=== PATIENT | female | born 1970 | race Caucasian/White ===

== ENCOUNTER → 2021-02-23 12:00 | Outpatient (BNVA) | payer OTHER, SELFPAY | PROVIDERS: Visit Provider Nurse Practitioner Family | DX: N39.0 Urinary tract infection, site not specified (principal) | CPT/HCPCS: 81000 ==

== ENCOUNTER 2025-06-27 16:17 | Emergency (ER) | payer SELFPAY ==
[2025-06-27 16:19] VITALS: BP 111/73; PULSE 74; RESP 14; TEMP 36.4; O2SAT 96; BMI 23.5
--- NOTE | 2025-06-27 16:23 | XRR_ITS ---
PROCEDURE INFORMATION: Exam: XR Right Wrist Exam date and time: 06/27/2025 4:33 PM Age: 55 years old Clinical indication: Injury or trauma; Fall; Blunt trauma (contusions or hematomas); Wrist; Right TECHNIQUE: Imaging protocol: Radiologic exam of the right wrist. Views: 3 or more views. COMPARISON: l spine FINDINGS: Bones/joints: No acute osseous abnormality. Soft tissues: Normal. XR/XR wrist RT min 3V* [id number] IMPRESSION: No acute findings.
--- NOTE | 2025-06-27 16:39 | ED_ITS ---
HPI - Extremity Problem General: Chief complaint: Extremity Injury, Upper Stated complaint: Fall-Hurt R wrist Time Seen by Provider: 06/27/25 16:25 Source: patient Mode of arrival: ambulatory Limitations: no limitations History of Present Illness: Patient is a 55-year-old female presents the emergency department after injuring her right wrist. States that an hour prehospital she slipped and had a FOOSH injury, states that she heard a pop and thinks her right wrist is broken. No previous fractures to that wrist but she did break her left wrist in the past and states that this was a similar incident where she heard a pop. There is EtOH on board. Mild swelling reported, still has range of motion but pain with range of motion with pronation/supination as well as flexion and extension at the wrist. No sensory changes distally. Mild pain noted at this time. Vital stable. No other injuries. MD Complaint: joint swelling and joint pain Onset (ago): hour(s) (1) Pain Consistency: constant Location: right and upper extremity (wrist) Exacerbating factors: range of motion and palpation Associated symptoms: Deny chest pain, fever(s) or rash Context: other (FOOSH rt wrist) Related Data Previous Rx's ?Medication ?Instructions ?Recorded ciprofloxacin HCl 250 mg tablet 250 mg PO BID 5 days # 10 tabs 02/23/21 (Cipro) fluconazole 150 mg tablet 150 mg PO ONCE #1 tab (Diflucan) Allergies Allergy/AdvReac Type Severity Reaction Status Date / Time erythromycin base Allergy unk Verified 06/27/25 16:23 Review of Systems General: Reports: 10 or more systems reviewed and unremarkable except in HPI and below Const: Denies: fever(s) or chills Card: Denies: chest pain Resp: Denies: dyspnea or productive cough GI: Denies: abdominal pain, nausea, vomiting or diarrhea : Denies: flank pain Musc: Reports: joint pain, joint swelling and limited range of motion; Denies: neck pain, back pain, extremity pain, extremity swelling, joint redness, joint warmth or muscle weakness Skin/Breast: Denies: rash Neuro: Denies: headache(s), numbness in extremities or weakness in extremities Physical Exam Const: COMMON NORMALS: no acute distress, patient oriented x3, no limitations, healthy appearing, alert and well nourished HENMT: COMMON NORMALS: normocephalic and atraumatic HEAD & SCALP: normocephalic and atraumatic Neck/C-Spine: COMMON NORMALS: full ROM, supple and no meningeal signs Extremity: COMMON NORMALS: capillary refill normal, no joint enlargement and no clubbing, cyanosis or edema NARRATIVE EXTREMITY EXAM: Mild swelling noted to distal right wrist, with slight deformity. Tender to palpation to right distal radius. Negative tenderness to palpation in the hand or at the elbow/proximal forearm. Distal sensations are intact, full strength with doughnut glazier. No coolness or pallor. Neuro: COMMON NORMALS: patient oriented x3, moves all extremities, no focal motor deficits and no sensory deficits noted SENSORIUM/ORIENTATION: Yes alert MENINGEAL SIGNS: Yes no meningeal signs Skin: COMMON NORMALS: no rashes or lesions noted GENERAL SKIN EXAM: no rashes or lesions noted Course Vital Signs: Vital signs: Vital Signs Temperature 97.6 F 06/27/25 16:19 Pulse Rate 74 06/27/25 16:19 Respiratory Rate 14 06/27/25 16:19 Blood Pressure 111/73 06/27/25 16:19 Pulse Oximetry 96 06/27/25 16:19 Oxygen Delivery Me thod Room Air 06/27/25 16:19 MDM - Extremity (Nontraumatic) Medical Decision Making Patient presents after FOOSH injury to right wrist, tenderness and swelling on exam with questionable mild deformity. Neurovascular exam is normal, no elbow pain. X-ray of the right wrist showing no acute findings. Suspect a sprain, she has resplint that she will use but encouraged early range of motion if she continues to have pain persisting past 4 to 5 days she will follow-up with her regular doctor or urgent care for repeat imaging. Lab Data Radiology Impressions Wrist X-Ray 06/27/25 16:23 IMPRESSION: No acute findings. All radiology interpretation(s) finalized by discharge Discharge Plan Discharge Patient Disposition: Home Clinical Impression: Right wrist sprain Qualifiers: Encounter type: initial encounter Wrist sprain location: unspecified location Qualified Code(s): S63.501A - Unspecified sprain of right wrist, initial encounter Condition: Stable Prescriptions: No Action ciprofloxacin HCl [Cipro] 250 mg tablet 250 mg PO BID 5 Days Qty: 10 1RF fluconazole [Diflucan] 150 mg tablet 150 mg PO ONCE Qty: 1 1RF Rx Instructions: as a single dose Discharge Orders: Discharge ED (Routine); Ordered 06/27/25 Ordered By: Omer Clifford Patient Instructions: Opioid Safety, Pain Management, Patient Portal & Brittany Instructions Activity Restrictions/Additional Instructions: Wrist Sprain Discharge Instructions Diagnosis and Treatment: You have a right wrist sprain. This means the soft tissues around your wrist were injured, but your X-ray did not show any broken bones. Most people recover well with rest and proper care. Wrist Splint: Wear your wrist splint as advised. This helps protect your wrist and allows it to heal. Only remove the splint for gentle hygiene or as instructed. Avoid activities that cause pain or put stress on your wrist. Pain Management: You may use [id number] pain medications such as acetaminophen or ibuprofen as directed. If you have no allergies or medical reasons to avoid them, these can help with pain and swelling. Topical diclofenac gel is also an option for pain relief. Activity: Rest your wrist and avoid heavy lifting, pushing, or pulling. You may use your hand for light activities as tolerated, but stop if you feel pain. Most people need to limit use of the affected wrist for about two weeks, but recovery can take up to six weeks. Swelling and Care: Elevate your wrist above heart level when possible to reduce swelling. Applying ice packs for 15-20 minutes every few hours during the first 48 hours may help with pain and swelling. When to Seek Help: Contact your healthcare provider or go to urgent care if you notice: - Increased pain, swelling, or redness - Numbness or tingling in your fingers - Trouble moving your fingers or wrist - Your splint feels too tight or causes new pain Follow-Up: If your pain is still significant after one week, follow up with your primary care provider or urgent care for a repeat X-ray. Sometimes, injuries are not visible on the first X-ray and may show up later. Expected Recovery: Most wrist sprains heal well with proper care. Full recovery is expected, but some people may have pain or stiffness for several weeks. If symptoms persist beyond six weeks, further evaluation may be needed. Questions: If you have any questions or concerns, please contact your healthcare provider. 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
[2025-06-27 17:46] VITALS: BP 119/68; PULSE 71; O2SAT 99
== END 2025-06-27 17:47 | disposition home or self-care (01) ==
PROVIDERS: Emergency Provider Physician Assistant
DX: S63.501A Unspecified sprain of right wrist, initial encounter (principal); W01.0XXA Fall on same level from slipping, tripping and stumbling without subsequent striking against object, initial encounter
CPT/HCPCS: 73110; 99283